=== PATIENT | male | born 1990 | race Caucasian/White ===

== ENCOUNTER 2020-07-20 19:44 | Emergency (ER) | payer BC ==
[~2020-07-20] VITALS: Ht 190.5 cm; Wt 129.5 kg
--- NOTE | 2020-07-20 19:53 | PHYS DOC ---
Past Medical History Past Medical History: Kidney Stone General Adult EDM: Chief Complaint: FLANK PAIN HPI: HPI: Patient is a 29 year old male who presented to ER for evaluation of left flank pain started yesterday. Pain went away then came back again today. Patient has history of kidney stone. Patient said the pain radiated to his left groin area. Patient denies any nausea vomiting, no fever. Review of Systems: Review of Systems: Constitutional: Denies fever or chills. [] Eyes: Denies change in visual acuity. [] HENT: Denies nasal congestion or sore throat. [] Respiratory: Denies cough or shortness of breath. [] Cardiovascular: Denies chest pain or edema. [] GI: Positive for left flank pain. No nausea vomiting, no diarrhea : Denies dysuria. [] Musculoskeletal: Denies back pain or joint pain. [] Integument: Denies rash. [] Neurologic: Denies headache, focal weakness or sensory changes. [] Endocrine: Denies polyuria or polydipsia. [] Lymphatic: Denies swollen glands. [] Psychiatric: Denies depression or anxiety. [] Heart Score: Risk Factors: Risk Factors: DM, Current or recent (<one month) smoker, HTN, HLP, family history of CAD, obesity. Risk Scores: Score 0 - 3: 2.5% MACE over next 6 weeks - Discharge Home Score 4 - 6: 20.3% MACE over next 6 weeks - Admit for Clinical Observation Score 7 - 10: 72.7% MACE over next 6 weeks - Early Invasive Strategies Physical Exam: PE: Constitutional: Well developed, well nourished, no acute distress, non-toxic appearance. [] HENT: Normocephalic, atraumatic, bilateral external ears normal, oropharynx moist, no oral exudates, nose normal. [] Eyes: PERRLA, EOMI, conjunctiva normal, no discharge. [] Neck: Normal range of motion, no tenderness, supple, no stridor. [] Cardiovascular:Heart rate regular rhythm, no murmur [] Lungs & Thorax: Bilateral breath sounds clear to auscultation [] Abdomen: Bowel sounds normal, soft, no tenderness, no masses, no pulsatile masses. [] Skin: Warm, dry, no erythema, no rash. [] Back: No tenderness, no CVA tenderness. [] Extremities: No tenderness, no cyanosis, no clubbing, ROM intact, no edema. [] Neurologic: Alert and oriented X 3, normal motor function, normal sensory function, no focal deficits noted. [] Psychologic: Affect normal, judgement normal, mood normal. [] Current Patient Data: Labs: Laboratory Tests Test 07/20/20 19:55 White Blood Count 21.3 x10^3/uL Red Blood Count 4.99 x10^6/uL Hemoglobin 15.1 g/dL Hematocrit 43.1 % Mean Corpuscular Volume 86 fL Mean Corpuscular Hemoglobin 30 pg Mean Corpuscular Hemoglobin Concent 35 g/dL Red Cell Distribution Width 13.3 % Platelet Count 338 x10^3/uL Neutrophils (%) (Auto) 72 % Lymphocytes (%) (Auto) 21 % Monocytes (%) (Auto) 5 % Eosinophils (%) (Auto) 1 % Basophils (%) (Auto) 1 % Neutrophils # (Auto) 15.4 x10^3/uL Lymphocytes # (Auto) 4.5 x10^3/uL Monocytes # (Auto) 1.0 x10^3/uL Eosinophils # (Auto) 0.2 x10^3/uL Basophils # (Auto) 0.2 x10^3/uL Segmented Neutrophils % 76 % Band Neutrophils % 1 % Lymphocytes % 16 % Atypical Lymphocytes % (Manual) 4 % Monocytes % 3 % Platelet Estimate Adequate Urine Collection Type Unknown Urine Color Yellow Urine Clarity Clear Urine pH 5.5 Urine Specific Stafford 1.010 Urine Protein Negative mg/dL Urine Glucose (UA) Negative mg/dL Urine Ketones (Stick) Negative mg/dL Urine Blood Small Urine Nitrite Negative Urine Bilirubin Negative Urine Urobilinogen Dipstick 0.2 mg/dL Urine Leukocyte Esterase Negative Urine RBC 3-5 /HPF Urine WBC 1-4 /HPF Urine Squamous Epithelial Cells Occ /LPF Urine Bacteria 0 /HPF Urine Mucus Slight /LPF Sodium Level 133 mmol/L Potassium Level 3.9 mmol/L Chloride Level 101 mmol/L Carbon Dioxide Level 22 mmol/L Anion Gap 10 Blood Urea Nitrogen 16 mg/dL Creatinine 1.3 mg/dL Estimated GFR (Cockcroft-Gault) 64.4 BUN/Creatinine Ratio 12 Glucose Level 113 mg/dL Calcium Level 9.4 mg/dL Total Bilirubin 0.1 mg/dL Aspartate Amino Transf (AST/SGOT) 20 U/L Alanine Aminotransferase (ALT/SGPT) 38 U/L Alkaline Phosphatase 86 U/L Total Protein 7.4 g/dL Albumin 3.9 g/dL Albumin/Globulin Ratio 1.1 Lipase 106 U/L Current Medications Medications (Trade) Dose Ordered Sig/Barbra Route PRN Reason Start Time Stop Time Status Last Admin Dose Admin Ketorolac Tromethamine (Toradol 30mg Vial) 30 mg 1X ONCE IVP 07/20/20 20:00 07/20/20 20:34 DC 07/20/20 20:40 Ondansetron HCl (Zofran) 4 mg 1X ONCE IVP 07/20/20 20:00 07/20/20 20:34 DC 07/20/20 20:40 Sodium Chloride 1,000 ml @ 1,000 mls/hr 1X ONCE IV 07/20/20 20:00 07/20/20 20:59 07/20/20 20:00 Morphine Sulfate (Morphine Sulfate) 4 mg 1X ONCE IV 07/20/20 20:00 07/20/20 20:34 DC 07/20/20 20:40 EKG: EKG: [] Radiology/Procedures: Radiology/Procedures: [][facility] [address] [place] [address] IMAGING REPORT Signed PATIENT: RAYMUNDO OLSON ACCOUNT: [id number] : 1990 LOCATION: ER AGE: 29 SEX: M EXAM STATUS: REG ER ORD. PHYSICIAN: PURVI COUCH DO REASON: LEFT FLANK PAIN, HX OF KIDNEY STONE PROCEDURE: CT ABDOMEN PELVIS WO CONTRAST Exam: CT of abdomen and pelvis without contrast INDICATION: Left flank pain, history of kidney stones TECHNIQUE: Sequential axial images through the abdomen and pelvis obtained without IV contrast. Sagittal and coronal reformatted images were reconstructed from the axial data and reviewed. Comparisons: None FINDINGS: Heart size is normal. No pericardial effusion. Visualized lung bases are clear. No pleural effusion. Evaluation of solid organs limited secondary to noncontrast technique. Liver, spleen, pancreas, gallbladder and adrenals are unremarkable. A 5 mm calculus at the proximal left ureter. Nonobstructing renal calculi noted bilaterally. No other ureteral calculi are identified. Bladder is distended and appears thin-walled. Prostate is not enlarged. Large and small bowel are unremarkable. Appendix is not identified. No free abdominal air or fluid. No obstruction. Abdominal aorta has a normal course and caliber. No enlarged abdominal lymph nodes are identified. No suspicious osseous IMPRESSION: 1. A 5 mm calculus at the proximal left ureter with mild left-sided hydronephrosis. 2. Several nonobstructing renal calculi are noted bilaterally. Exposure: One or more of the following in the visualized dose reduction techniques were utilized for this examination: 1. Automated exposure control 2. Adjustment of the MA and/or KV according to patient size 3. Use of iterative of reconstructive technique Electronically signed by: John Rodriguez MD (07/20/2020 9:12 PM) [facility] DICTATED and SIGNED BY: JOHN RODRIGUEZ MD DATE: 07/20/20 [id number] Course & Med Decision Making: Course & Med Decision Making Pertinent Labs and Imaging studies reviewed. (See chart for details) Patient is a 29-year-old male who presented to ER with left flank pain, CT scan shown a 5 mm stone on the left proximal ureter with hydronephrosis. Kidney function normal, no evident infection. Patient pain is under control at this time. Patient will be discharged home, he will need to follow-up with urology for outpatient evaluation and treatment. Patient is amenable to plan of care. Dragon Disclaimer: Dragjazmine Disclaimer: This electronic medical record was generated, in whole or in part, using a voice recognition dictation system. Departure Departure Impression: Primary Impression: Kidney stone on left side Disposition: 01 HOME SELF CARE/HOMELESS Condition: IMPROVED Patient Instructions: Kidney Stones Additional Instructions: PLEASE CALL [facility] UROLOGY DEPARTMENT FOR FOLLOW UP THIS WEEK. The phone number is [phone] Scripts Ondansetron Hcl (ZOFRAN) 4 Mg Tablet 1 TAB PO Q6HRS PRN for NAUSEA, #20 TAB Prov: PURVI COUCH DO 07/20/20 Tamsulosin Hcl (FLOMAX) 0.4 Mg Cap.er.24h 0.4 MG PO DAILY for 14 Days, #14 TAB Prov: PURVI COUCH DO 07/20/20 Ibuprofen (IBUPROFEN) 800 Mg Tablet 800 MG PO PRN Q8HRS PRN for PAIN, #30 TAB Prov: PURVI COUCH DO 07/20/20 Hydrocodone/Apap 5-325 (NORCO 5-325 TABLET) 1 Each Tablet 1 TAB PO PRN Q6HRS PRN for PAIN, #15 TAB 0 Refills Prov: PURVI COUCH DO 07/20/20 PURVI COUCH DO Jul 20, 2020 19:53
[2020-07-20] MEDS ORDERED: IV NORMAL SALINE 1000ML BAG 1,000 ML IV ONE (20:00)
[2020-07-20] MEDS ORDERED: ONDANSETRON PF 4 MG/2 ML VIAL. IVP ONE (20:00)
[2020-07-20] MEDS ORDERED: MORPHINE SULFATE 4 MG/ML VIAL. IV ONE ×2 (20:00→22:00)
[2020-07-20] MEDS ORDERED: KETOROLAC 30 MG/ML VIAL. IVP ONE (20:00)
[2020-07-20 20:03] LABS: BASO # 0.2 x10^3/uL (0.0-0.2); BASO % 1 % (0-3); EOS # 0.2 x10^3/uL (0.0-0.7); EOS % 1 % (0-3); HEMATOCRIT 43.1 % (39.0-53.0); HEMOGLOBIN 15.1 g/dL (13.0-17.5); LYMPH # 4.5 x10^3/uL (1.0-4.8); LYMPH % 21 % (24-48); MEAN CORPUSCULAR HEMOGLOBIN 30 pg (25-35); MEAN CORPUSCULAR HGB CONC 35 g/dL (31-37); MEAN CORPUSCULAR VOLUME 86 fL (79-100); MONO % 5 % (0-9); NEUT # 15.4 x10^3/uL (1.8-7.7); NEUT % 72 % (31-73); PLATELET COUNT 338 x10^3/uL (140-400); RED BLOOD COUNT 4.99 x10^6/uL (4.30-5.70); RED CELL DISTRIBUTION WIDTH 13.3 % (11.5-14.5); WHITE BLOOD COUNT 21.3 x10^3/uL (4.0-11.0)
[2020-07-20 20:08] LABS: BILIRUBIN,URINE NEGATIVE (NEG); CLARITY,URINE CLEAR; COLOR,URINE YELLOW; NITRITE,URINE NEGATIVE (NEG); PH,URINE 5.5 (<5.0-8.0); PROTEIN,URINE NEGATIVE (NEG-TRACE); UROBILINOGEN,URINE 0.2 mg/dL (0.2 mg/dL)
[2020-07-20 20:13] LABS: BACTERIA,URINE 0 /HPF (0-FEW)
[2020-07-20 20:16] LABS: CALCIUM 9.4 mg/dL (8.5-10.1); CREATININE 1.3 mg/dL (0.7-1.3); GFR 64.4; POTASSIUM 3.9 mmol/L (3.5-5.1)
[2020-07-20 20:20] LABS: ALBUMIN 3.9 g/dL (3.4-5.0); ALBUMIN/GLOBULIN RATIO 1.1 (1.0-1.7); TOTAL BILIRUBIN 0.1 mg/dL (0.2-1.0); TOTAL PROTEIN 7.4 g/dL (6.4-8.2)
[2020-07-20 20:47] LABS: % ATYL 4 % (0-0); % BANDS 1 % (0-9); % LYMPHS 16 % (24-48); % MONOS 3 % (0-10); % SEGS 76 % (35-66); PLT ESTIMATE ADEQUATE (ADEQUATE)
--- NOTE | 2020-07-20 21:15 | RAD ---
Exam: CT of abdomen and pelvis without contrast INDICATION: Left flank pain, history of kidney stones TECHNIQUE: Sequential axial images through the abdomen and pelvis obtained without IV contrast. Sagit marcelle and coronal reformatted images were reconstructed from the axial data and reviewed. Comparisons: None FINDINGS: Heart size is normal. No pericardial effusion. Visualized lung bases are clear. No pleural effusion. Evaluation of solid organs limited secondary to noncontrast technique. Liver, spleen, pancreas, gallbladder and adrenals are unremarkable. A 5 mm calculus at the proximal left ureter. Nonobstructing renal calculi noted bilaterally. No other ureteral calculi are identified. Bladder is distended and appears thin-walled. Prostate is not enlarged. Large and small bowel are unremarkable. Appendix is not identified. No free abdominal air or fluid. N o obstruction. Abdominal aorta has a normal course and caliber. No enlarged abdominal lymph nodes are identified. No suspicious osseous IMPRESSION: 1. A 5 mm calculus at the proximal left ureter with mild left-sided hydronephrosis. 2. Several nonobstructing renal calculi are noted bilaterally. Exposure: One or more of the following in the visualized dose reduction techniques were utilized for this examination: 1. Automated exposure control 2. Adjustment of the MA and/or KV according to patient size 3. Use of iterative of reconstructive technique Electronically signed by: John Laguna MD (07/20/2020 9:12 PM) [facility]
[2020-07-20] MEDS ORDERED: TAMSULOSIN 0.4 MG CAP.ER.24H. PO ONE (22:00)
[2020-07-20] MEDS ORDERED: HYDROcodone/APAP 10/325 1 TAB TABLET PO ONE (22:00)
[2020-07-20] MEDS ORDERED: IBUP-1060 PO (22:14)
[2020-07-20] MEDS ORDERED: HYDR-3164 PO (22:14)
[2020-07-20] MEDS ORDERED: TAMS0.4C97 PO (22:14)
[2020-07-20] MEDS ORDERED: ONDA4TAB7 PO (22:15)
[2020-07-20 22:24] VITALS: BP 154/87
== END 2020-07-20 22:28 | disposition home or self-care (01) ==
LOC: ER 19:44
DX: N13.2 Hydronephrosis with renal and ureteral calculous obstruction (principal)
CPT/HCPCS: 36415; 74176; 80053; 81001; 83690; 85007; 85025; 96361; 96374; 96375; 96376; 99284; J1885; J2270; J2405; J7030

== ENCOUNTER 2020-10-11 23:07 | Emergency (ER) | payer BC ==
[~2020-10-11] VITALS: Ht 190.5 cm; Wt 129.5 kg
[~2020-10-11 23:07] MED LIST: HYDR-3164 PO; IBUP-1060 PO; ONDA4TAB7 PO; TAMS0.4C97 PO
[2020-10-11] MEDS: IV NORMAL SALINE 1000ML BAG 1,000 ML IV ONE (23:47)
[2020-10-11] MEDS: KETOROLAC 30 MG/ML VIAL. IVP ONE (23:48)
[2020-10-11 23:54] LABS: BASO # 0.1 x10^3/uL (0.0-0.2); BASO % 1 % (0-3); EOS # 0.3 x10^3/uL (0.0-0.7); EOS % 2 % (0-3); HEMATOCRIT 41.4 % (39.0-53.0); HEMOGLOBIN 14.2 g/dL (13.0-17.5); LYMPH # 5.4 x10^3/uL (1.0-4.8); LYMPH % 30 % (24-48); MEAN CORPUSCULAR HEMOGLOBIN 30 pg (25-35); MEAN CORPUSCULAR HGB CONC 34 g/dL (31-37); MEAN CORPUSCULAR VOLUME 87 fL (79-100); MONO % 6 % (0-9); NEUT % 62 % (31-73); PLATELET COUNT 338 x10^3/uL (140-400); RED BLOOD COUNT 4.75 x10^6/uL (4.30-5.70); RED CELL DISTRIBUTION WIDTH 13.1 % (11.5-14.5); WHITE BLOOD COUNT 17.8 x10^3/uL (4.0-11.0)
[2020-10-12 00:02] LABS: CALCIUM 8.7 mg/dL (8.5-10.1); CREATININE 1.1 mg/dL (0.7-1.3); GFR 77.6; POTASSIUM 3.6 mmol/L (3.5-5.1)
--- NOTE | 2020-10-12 00:04 | PHYS DOC ---
Past Medical History Past Medical History: Asthma, Kidney Stone Past Surgical History: Other Additional Past Surgical Histo: LEFT KNEE, RIGHT HAND, RIGHT FOOT, LITHOTRIPSY Smoking Status: Current Every Day Smoker Alcohol Use: Rarely General Adult EDM: Chief Complaint: FLANK PAIN HPI: HPI: Patient is a 30 year old male with past medical history of left-sided kidney stone status post lithotripsy in August, presents for right-sided flank pain with 2-hour in duration as well as urinary urgency. Patient reports family histories of recurrent kidney stone in his father, and his niece. Patient had issue with urination and went to the urgent care on Tuesday, in urgent care clinic patient had a urinalysis which appeared to be negative for infections. Tonight 2 hours before patient checked into the ER he started having right-sided flank pain that is 9 out of 10 in severity, and the pain radiates from the flank down to patient's right groin. He felt pressure in the region behind his scrotum. Patient was asked to provide urine samples but was unable to provide accurate amount. He denies any chest pain, shortness of breath, fever, chills, dysuria, hematuria, or abdominal pain. Patient is the main historian. Review of Systems: Review of Systems: Review of systems: Constitutional symptoms- No fever, no chills. Eyes- No Discharge, No Visual Loss Respiratory symptoms- No shortness of breath, No wheezing, No Dyspnea on Exertion Cardiovascular Systems; No chest pain, No Palpitations, No syncope Gastrointestinal symptoms: NO abdominal pain, no nausea, no vomiting or diarrhea. Genitourinary symptoms: No dysuria, hematuria. Patient endorses urinary urgency, and difficulty urinating. Endorse right-sided flank pain that radiates down to the right groin. Musculoskeletal symptoms: No back pain No extremity pain. NEUROLOGICAL Symptoms: No headache, no generalized weakness; No focal Weakness Heart Score: C/O Chest Pain: No Risk Factors: Risk Factors: DM, Current or recent (<one month) smoker, HTN, HLP, family history of CAD, obesity. Risk Scores: Score 0 - 3: 2.5% MACE over next 6 weeks - Discharge Home Score 4 - 6: 20.3% MACE over next 6 weeks - Admit for Clinical Observation Score 7 - 10: 72.7% MACE over next 6 weeks - Early Invasive Strategies Current Medications: Current Medications Medications (Trade) Dose Ordered Sig/Barbra Start Time Stop Time Status Last Admin Dose Admin Ketorolac Tromethamine (Toradol 30mg Vial) 30 mg 1X ONCE 10/12/20 00:00 10/12/20 00:01 10/11/20 23:48 30 MG Sodium Chloride 1,000 ml @ 1,000 mls/hr 1X ONCE 10/12/20 00:00 10/12/20 00:59 10/11/20 23:47 1,000 MLS/HR Allergies: Allergies: Allergies Coded Allergies Type Severity Reaction Last Updated Verified No Known Drug Allergies 07/20/20 No Physical Exam: PE: General: alert, no acute distress. Skin: warm, dry and intact. Head:: Normocephalic, atraumatic. Neck: Trachea midline. Eyes: EOMI, Normal conjunctiva, No drainage CARDIOVASCULAR: Regular rate and rhythm RESPIRATORY: No respiratory distress Back: Full range of motion. MUSCULOSKELETAL: Full range of motion of bilateral upper and lower extremities. GASTROINTESTINAL: Abdomen soft without rebound or guarding. Genitourinary: Patient's reports flank pain mildly relieved upon palpation NEUROLOGICAL: Alert and noted to person, place and time. No neurological deficits observed Psychiatric: Cooperative. Normal judgment Current Patient Data: Labs: Laboratory Tests Test 10/11/20 23:24 White Blood Count 17.8 x10^3/uL (4.0-11.0) H Red Blood Count 4.75 x10^6/uL (4.30-5.70) Hemoglobin 14.2 g/dL (13.0-17.5) Hematocrit 41.4 % (39.0-53.0) Mean Corpuscular Volume 87 fL (79-100) Mean Corpuscular Hemoglobin 30 pg (25-35) Mean Corpuscular Hemoglobin Concent 34 g/dL (31-37) Red Cell Distribution Width 13.1 % (11.5-14.5) Platelet Count 338 x10^3/uL (140-400) Neutrophils (%) (Auto) 62 % (31-73) Lymphocytes (%) (Auto) 30 % (24-48) Monocytes (%) (Auto) 6 % (0-9) Eosinophils (%) (Auto) 2 % (0-3) Basophils (%) (Auto) 1 % (0-3) Neutrophils # (Auto) 11.0 x10^3/uL (1.8-7.7) H Lymphocytes # (Auto) 5.4 x10^3/uL (1.0-4.8) H Monocytes # (Auto) 1.0 x10^3/uL (0.0-1.1) Eosinophils # (Auto) 0.3 x10^3/uL (0.0-0.7) Basophils # (Auto) 0.1 x10^3/uL (0.0-0.2) Laboratory Tests 10/11/20 23:24 Vital Signs: Vital Signs Date Time Temp Pulse Resp B/P (MAP) Pulse Ox O2 Delivery O2 Flow Rate FiO2 10/11/20 23:16 99.0 90 18 155/91 (112) 99 Room Air 99.0 EKG: EKG: [] Radiology/Procedures: Radiology/Procedures: [] Impression: CT abdomen and pelvis without contrast: Reason for examination: Flank pain. Comparison is made to previous study dated 07/20/2020. Helical images were obtained through the abdomen and pelvis with no intravenous or oral contrast administered. Reconstruction was performed in sagittal and coronal planes. Exposure: One or more of the following individualized dose reduction techniques were utilized for this examination: 1. Automated exposure control 2. Adjustment of the mA and/or kV according to patient size 3. Use of iterative reconstruction technique. The lung bases are clear. The heart size is normal with no pericardial effusion. No abnormality seen at the liver, spleen, pancreas or adrenal glands. The gallbladder is contracted but no choleliths are seen. The patient's stomach however contains a large amount of gastric content in the patient has not been nothing by mouth. The abdominal aorta and inferior vena cava show no abnormalities. The left kidney shows no renal mass, renal calculus, hydronephrosis or obstructive uropathy. Right kidney shows no renal mass but there is a nonobstructing renal calculus at the lower pole there is also moderate hydronephrosis which appears to be due to a renal calculus at the distal right ureter measuring approximately 4 mm in size. There is no evidence of diverticulosis, diverticulitis or colitis. The small intestinal tract shows no abnormal dilatation or wall thickening or obstruction. No abnormality seen at the bladder, prostate gland or seminal vesicles. No free fluid or free air seen in the abdomen or pelvis. No acute bony abnormalities evident. IMPRESSION: 6 mm nonobstructing calculus in the lower pole right kidney. 4 mm obstructing calculus at the distal right ureter with moderate hydronephrosis. Electronically signed by: Julia Mcelroy MD (10/12/2020 12:17 AM) [facility] Course & Med Decision Making: Course & Med Decision Making Pertinent Labs and Imaging studies reviewed. (See chart for details) [] Patient was evaluated for chief complaint. Work-up consisted of laboratory analysis and radiologic imaging. Results reviewed and discussed with patient. CT imaging shows 6 mm stone lower pole right kidney 4 mm obstructing stone right distal ureter with hydronephrosis. Patient's kidney function within normal limits. Patient's pain treated with Toradol he also received a tablet of Flomax. Patient referred to his urologist. Patient states he has strainer at home. Will prescribe patient Ultram Flomax and ibuprofen. Dragon Disclaimer: Dragon Disclaimer: This electronic medical record was generated, in whole or in part, using a voice recognition dictation system. Departure Departure Impression: Primary Impression: Kidney stone Disposition: 01 HOME SELF CARE/HOMELESS Condition: STABLE Referrals: TILA CASEY MD (PCP) Patient Instructions: Kidney Stones Scripts Ibuprofen (Ibu) 800 Mg Tablet 1 TAB PO Q8HRS for 7 Days, #21 TAB 0 Refills Prov: VIN SHIPMAN I DO 10/12/20 Tamsulosin Hcl (FLOMAX) 0.4 Mg Cap.er.24h 1 CAP PO DAILY, #20 CAP 11 Refills Prov: VIN SHIPMAN I DO 10/12/20 Tramadol Hcl (ULTRAM) 50 Mg Tablet 1 TAB PO PRN Q6HRS PRN for pain MDD 4 Tablet(s) for 7 Days, #28 TAB 0 Refills Prov: VIN SHIPMAN I DO 10/12/20 VIN SHIPMAN I DO Oct 12, 2020 00:04
[2020-10-12 00:08] LABS: ALBUMIN 3.8 g/dL (3.4-5.0); ALBUMIN/GLOBULIN RATIO 1.1 (1.0-1.7); TOTAL BILIRUBIN 0.2 mg/dL (0.2-1.0); TOTAL PROTEIN 7.3 g/dL (6.4-8.2)
--- NOTE | 2020-10-12 00:19 | RAD ---
CT abdomen and pelvis without contrast: Reason for examination: Flank pain. Comparison is made to previous study dated 07/20/2020. Helical images were obtained through the abdomen and pelvis with no intravenous or oral contrast admi nistered. Reconstruction was performed in sagittal and coronal planes. Exposure: One or more of the following individualized dose reduction techniques were utilized for thi s examination: 1. Automated exposure control 2. Adjustment of the mA and/or kV according to patient size 3. Use of iterative reconstruction technique. The lung bases are clear. The heart size is normal with no pericardial effusion. No abnormality seen at the liver, spleen, pancreas or adrenal glands. The gallbladder is contracted b ut no choleliths are seen. The patient's stomach however contains a large amount of gastric content i n the patient has not been nothing by mouth. The abdominal aorta and inferior vena cava show no abnor malities. The left kidney shows no renal mass, renal calculus, hydronephrosis or obstructive uropathy . Right kidney shows no renal mass but there is a nonobstructing renal calculus at the lower pole the re is also moderate hydronephrosis which appears to be due to a renal calculus at the distal right ur eter measuring approximately 4 mm in size. There is no evidence of diverticulosis, diverticulitis or colitis. The small intestinal tract shows no abnormal dilatation or wall thickening or obstruction. No abnormality seen at the bladder, prostate gland or seminal vesicles. No free fluid or free air see n in the abdomen or pelvis. No acute bony abnormalities evident. IMPRESSION: 6 mm nonobstructing calculus in the lower pole right kidney. 4 mm obstructing calculus at the distal right ureter with moderate hydronephrosis. Electronically signed by: Julia Mcelroy MD (10/12/2020 12:17 AM) [facility]
[2020-10-12 00:20] LABS: BILIRUBIN,URINE NEGATIVE (NEG); CLARITY,URINE CLEAR; COLOR,URINE YELLOW; NITRITE,URINE NEGATIVE (NEG); PH,URINE 5.5 (<5.0-8.0); PROTEIN,URINE NEGATIVE (NEG-TRACE); UROBILINOGEN,URINE 0.2 mg/dL (0.2 mg/dL)
[2020-10-12 00:48] LABS: BACTERIA,URINE 0 /HPF (0-FEW); WBC,URINE OCC /HPF (0-4)
[2020-10-12] MEDS ORDERED: TRAM-48 PO (01:04)
[2020-10-12] MEDS ORDERED: TAMS0.4C97 PO (01:04)
[2020-10-12] MEDS ORDERED: IBUP-577 PO (01:05)
[2020-10-12] MEDS: TAMSULOSIN 0.4 MG CAP.ER.24H. PO ONE (01:12)
[2020-10-12 01:18] VITALS: BP 131/69
== END 2020-10-12 01:18 | disposition home or self-care (01) ==
LOC: ER 23:07
DX: N13.2 Hydronephrosis with renal and ureteral calculous obstruction (principal); R10.31 Right lower quadrant pain; R35.0 Frequency of micturition; J45.909 Unspecified asthma, uncomplicated; F17.200 Nicotine dependence, unspecified, uncomplicated; Z87.442 Personal history of urinary calculi; Z98.890 Other specified postprocedural states
CPT/HCPCS: 36415; 74176; 80053; 81001; 85025; 96361; 96374; 99285; J1885; J7030